=== PATIENT | female | born 1975 | race Two or more races ===

== ENCOUNTER 2016-05-13 11:38 | Emergency (ER) | payer OTHER, SELFPAY ==
[2016-05-13 12:06] VITALS: BMI 32.5
[2016-05-13 12:16] LABS: AUTOMATED BASOPHIL 0.4 % (0-2); AUTOMATED EOSINOPHIL 0.9 % (0-5); AUTOMATED LYMPH 32.3 % (17-44); AUTOMATED MONOCYTE 6.8 % (3-10); AUTOMATED NEUTROPHIL 59.6 % (45-76); MPV 8.6 fL (7.4-10.4)
[2016-05-13 12:31] LABS: BLOOD UREA NITROGEN 9 MG/DL (7-17); CALCIUM 8.8 MG/DL (8.4-10.2); CALCULATED OSMOLALITY 266 MOs/Kg (270-290); CHLORIDE 105 mEq/L (98-107); GLUCOSE 109 mg/dL (70-99); SODIUM LEVEL 138 mEq/L (137-146); TOTAL PROTEIN 7.2 G/DL (6.3-8.2)
[2016-05-13] MEDS ORDERED: MORPHINE 4 MG/ML INJECTION IV ONE (13:02)
[2016-05-13] MEDS ORDERED: NS 1,000 ML IV ONE (13:02)
[2016-05-13] MEDS ORDERED: ONDANSETRON HCL 4 MG/2 ML VIAL IV ONE (13:02)
--- NOTE | 2016-05-13 13:09 | EDPRACDOC ---
- General Information Chief Complaint: Female Urogenital Problems Stated Complaint: PAIN LT UPPER ABD & SIDE Time Seen by Provider: 05/13/16 12:54 Information Source: Patient, [employer] Mode Of Arrival: Car Home Medications: Home Medications Famotidine [Pepcid] 20 mg PO DAILY #30 tablet 05/13/16 Hydrocodone/Acetaminophen [Lortab 5-325 mg Tablet] 1 each PO Q4H PRN #15 tablet 05/13/16 Metronidazole [Flagyl] 500 mg PO BID #14 tab 05/13/16 Allergies/Adverse Reactions: Allergies Allergy/AdvReac Type Severity Reaction Status Date / Time No Known Allergies Allergy Verified 05/13/16 12:06 - History of Present Illness Onset: 3 WEEKS HPI: PT HAS HAD ABD PAIN FOR 3 WEEKS. THE PT HAS BEEN TO SEE HER DR 3 TIMES. SHE STILL HAS PAIN. PT SAID HER DR HAS PUT HER ON VARIOUS MEDS, BUT SHE DOES NOT KNOW WHAT THEY WERE. PT ALSO REPORTS IRREGULAR VAGINAL BLEEDING. Pain Location: Reports: Epigastric, LUQ Pain Context: Reports: Spontaneous Pain Severity: Moderate Pain Quality: Reports: Sharp Pain Radiation: Reports: Back Last Menstrual Period: CURRENT : No Adult Abdominal History: Reports: Abdominal Surgery Female Abdominal History: Reports: Abdominal Surgery Female Associated Signs & Symptoms: Reports: Nausea Oral Intake: Normal Urinary Output: Normal ED Past Medical History - Patient Medical History Neurological History: Denies: Migraine Cardiac History: Reports: Hypercholesterolemia GI/ History: Reports: Gastroesophageal Reflux Psychological History: Denies: Depression, Substance Use Disorder Surgical History: Reports: Appendectomy, Other (C section.). Denies: Hysterectomy - Family Medical History Reports: Hypertension (Mother), Cardiac Disorders (Father). Denies: Diabetes, Cancer, Stroke - Social Medical History Smoking Status: Never smoker Social History: Denies: Substance Use Disorder ETOH: None Substance Abuse: None Lives In: Home EDM Review of Systems - Review of Systems ROS Negative Except as Marked: Yes All systems reviewed and were negative except as marked Gastrointestinal: Pain Genitourinary: Vaginal Bleeding - Physical Exam Constitutional: Alert (Awake), No apparent distress Oriented to: Time, Person, Place Last recorded Vital Signs: Last Vital Signs Temp 97.6 F 05/13/16 11:38 Pulse 96 05/13/16 11:38 Resp 18 05/13/16 11:38 BP 157/90 05/13/16 11:38 Pulse Ox 98 05/13/16 11:38 Oxygen Pulse Oxygen Saturation 98 O2 Device Oxygen Flow Rate Fraction of Inspired Oxygen ( FIO2) - HEENT Head: Normal ( normocephalic) Eye Exam: Normal (PERRL, EOMI, Sclera white) Oropharynx: Normal (Pharynx:Moist without exudate,Gums-no swelling) ENT EAC: Normal TMJ: Normal Nose: No Symptoms Reported (septum midline) Neck: Normal (FROM, trachea at midline) - Respiratory/Cardiovascular Respiratory: Normal - CTA (BBS clear to auscultation without adventitious sounds ) Cardiovascular: Normal (RRR without murmur, gallop or rub) - GI Auscultation: Normal (NABS) Palpation: Normal (Soft,No rebound or guarding, non distended) Tenderness: Mild, RUQ, Epigastric Johnson's Sign: Negative - Bladder: Normal External: Normal Vagina: Blood Cervix: Blood Uterus: Normal size Adnexa: Bilateral: Normal - Musculoskeletal Back: Normal (Non-Tender) Extremities: Normal (Normal tone, Pulses 2+ No cyanosis or edema, FROM) - Integumentary Skin: Normal, Warm, Dry Lymphatics: Normal (no adenopathy) - Neurologic Memory Impaired: Normal Motor Function: Normal (Normal tone, Pulses 2+ No cyanosis or edema, FROM) Cranial Nerve: Normal (CN II-X11 intact sensation, strength 5/5) Cerebellar: Normal Mood Description: Normal Thought: Coherent Perception: Normal - Results 05/13/16 12:10 05/13/16 12:10 WBC 9.3 xk/uL (3.8-10.8) 05/13/16 12:10 RBC 4.50 xM/uL (4.20-5.40) 05/13/16 12:10 Hgb 13.3 g/dL (12.0-16.0) 05/13/16 12:10 Hct 39.0 % (36-47) 05/13/16 12:10 MCV 87 fL (81-99) 05/13/16 12:10 MCH 29.5 pg (27-32) 05/13/16 12:10 MCHC 34.0 g/dl (33-36) 05/13/16 12:10 RDW 14.6 % (11.5-14.5) H 05/13/16 12:10 Plt Count 254 xk/uL (130-400) 05/13/16 12:10 MPV 8.6 fL (7.4-10.4) 05/13/16 12:10 Neut % (Auto) 59.6 % (45-76) 05/13/16 12:10 Lymph % (Auto) 32.3 % (17-44) 05/13/16 12:10 Logan % (Auto) 6.8 % (3-10) 05/13/16 12:10 Eos % (Auto) 0.9 % (0-5) 05/13/16 12:10 Baso % (Auto) 0.4 % (0-2) 05/13/16 12:10 Absolute Neuts (auto) 5.49 xk/uL (1.7-8.2) 05/13/16 12:10 Absolute Lymphs (auto) 2.98 xk/uL (0.65-4.75) 05/13/16 12:10 Sodium 138 mEq/L (137-146) 05/13/16 12:10 Potassium 3.7 mEq/L (3.5-5.1) 05/13/16 12:10 Chloride 105 mEq/L (98-107) 05/13/16 12:10 Carbon Dioxide 26 mMOL/L (22-33) 05/13/16 12:10 Anion Gap 11 mEq/L (8-16) 05/13/16 12:10 BUN 9 MG/DL (7-17) 05/13/16 12:10 Creatinine 0.60 MG/DL (0.52-1.04) 05/13/16 12:10 Estimated GFR (MDRD) > 60 mL/min (>=60) 05/13/16 12:10 Glucose 109 mg/dL (70-99) H 05/13/16 12:10 Calculated Osmolality 266 MOs/Kg (270-290) L 05/13/16 12:10 Calcium 8.8 MG/DL (8.4-10.2) 05/13/16 12:10 Total Bilirubin 0.3 MG/DL (0.2-1.3) 05/13/16 12:10 AST 24 IU/L (14-36) 05/13/16 12:10 ALT 28 IU/L (9-52) 05/13/16 12:10 Alkaline Phosphatase 78 IU/L (38-126) 05/13/16 12:10 Total Protein 7.2 G/DL (6.3-8.2) 05/13/16 12:10 Albumin 4.1 G/DL (3.5-5.0) 05/13/16 12:10 Lipase 54 U/L (23-300) 05/13/16 12:10 Urine Color Pale yellow 05/13/16 13:08 Urine Clarity Clear 05/13/16 13:08 Urine pH 6.0 (5.0-8.0) 05/13/16 13:08 Ur Specific Jackson 1.005 (1.003-1.035) 05/13/16 13:08 Urine Protein Neg (NEG/TRACE) 05/13/16 13:08 Urine Glucose (UA) Neg (NEGATIVE) 05/13/16 13:08 Urine Ketones Neg (NEGATIVE) 05/13/16 13:08 Urine Occult Blood 2+ (NEG/TRACE) H 05/13/16 13:08 Urine Nitrite Neg (NEGATIVE) 05/13/16 13:08 Urine Bilirubin Neg (NEGATIVE) 05/13/16 13:08 Urine Urobilinogen <2.0 MG/DL (0-1) 05/13/16 13:08 Ur Leukocyte Esterase Neg (NEGATIVE) 05/13/16 13:08 Urine RBC 0-2 (0-5) 05/13/16 13:08 Urine WBC 0-2 (0-5) 05/13/16 13:08 Ur Epithelial Cells 1+ 05/13/16 13:08 Urine Bacteria Few (NEG/FEW) 05/13/16 13:08 Urine Test Neg (NEGATIVE) 05/13/16 13:08 Microbiology 05/13/16 13:52 Trichomonas Wet Mount - Final Vaginal 05/13/16 13:52 GREG Preparation - Final Vaginal Lab Results 05/13/16 05/13/16 05/13/16 13:08 13:08 12:10 WBC 9.3 RBC 4.50 Hgb 13.3 Hct 39.0 MCV 87 MCH 29.5 MCHC 34.0 RDW 14.6 H Plt Count 254 MPV 8.6 Neut % (Auto) 59.6 Lymph % (Auto) 32.3 Logan % (Auto) 6.8 Eos % (Auto) 0.9 Baso % (Auto) 0.4 Absolute Neuts (auto) 5.49 Absolute Lymphs (auto) 2.98 Sodium Potassium Chloride Carbon Dioxide Anion Gap BUN Creatinine Estimated GFR (MDRD) Glucose Calculated Osmolality Calcium Total Bilirubin AST ALT Alkaline Phosphatase Total Protein Albumin Lipase Urine Color Pale yellow Urine Clarity Clear Urine pH 6.0 Ur Specific Jackson 1.005 Urine Protein Neg Urine Glucose (UA) Neg Urine Ketones Neg Urine Occult Blood 2+ H Urine Nitrite Neg Urine Bilirubin Neg Urine Urobilinogen <2.0 Ur Leukocyte Esterase Neg Urine RBC 0-2 Urine WBC 0-2 Ur Epithelial Cells 1+ Urine Bacteria Few Urine Test Neg 05/13/16 12:10 WBC RBC Hgb Hct MCV MCH MCHC RDW Plt Count MPV Neut % (Auto) Lymph % (Auto) Logan % (Auto) Eos % (Auto) Baso % (Auto) Absolute Neuts (auto) Absolute Lymphs (auto) Sodium 138 Potassium 3.7 Chloride 105 Carbon Dioxide 26 Anion Gap 11 BUN 9 Creatinine 0.60 Estimated GFR (MDRD) > 60 Glucose 109 H Calculated Osmolality 266 L Calcium 8.8 Total Bilirubin 0.3 AST 24 ALT 28 Alkaline Phosphatase 78 Total Protein 7.2 Albumin 4.1 Lipase 54 Urine Color Urine Clarity Urine pH Ur Specific Jackson Urine Protein Urine Glucose (UA) Urine Ketones Urine Occult Blood Urine Nitrite Urine Bilirubin Urine Urobilinogen Ur Leukocyte Esterase Urine RBC Urine WBC Ur Epithelial Cells Urine Bacteria Urine Test - Diagnostic Imaging Abdomen Image interpreted by: Radiologist 05/13/16 14:26 1 mm nonobstructing stone left lower pole. No ureteral calculus identified. Decision Time to Discharge: 14:26 - Departure Yes I personally saw and evaluated the patient. Disposition: Home Condition: Fair Final Diagnosis: Bacterial vaginosis, DUB (dysfunctional uterine bleeding), Abdominal pain Instructions: Abdominal Pain in Women, Bacterial Vaginosis (ED) Education/Counseling Given To: Patient Education/Counseling Given Regarding: Diagnosis, Treatment Referrals: Doron De La Cruz MD [Primary Care Provider] - One Week Darshan Bishop MD [Staff Provider No Admit] - One Week Lashon Ellison DO [Staff Physician] - One Week Prescriptions: New Famotidine [Pepcid] 20 mg PO DAILY #30 tablet Hydrocodone/Acetaminophen [Lortab 5-325 mg Tablet] 1 each PO Q4H PRN #15 tablet PRN Reason: Pain Metronidazole [Flagyl] 500 mg PO BID #14 tab
[2016-05-13 13:35] LABS: LEUKOCYTES/URINE NEG (NEGATIVE); NITRITE/URINE NEG (NEGATIVE); RBC/URINE 0-2 (0-5); URINE OCCULT BLOOD 2+ (NEG/TRACE); WBC/URINE 0-2 (0-5)
--- NOTE | 2016-05-13 14:23 | DIRPT ---
CLINICAL DATA: Left flank pain EXAM: CT ABDOMEN AND PELVIS WITHOUT CONTRAST TECHNIQUE: Multidetector CT imaging of the abdomen and pelvis was performed following the standard protocol without IV contrast. COMPARISON: CT abdomen pelvis 05/11/2012 FINDINGS: Lower chest: Lung bases clear without infiltrate or effusion. Hepatobiliary: Liver normal in size and contour. No liver lesion. Gallbladder and bile ducts normal. Pancreas: Negative Spleen: Negative Adrenals/Urinary Tract: 1 mm nonobstructing stone left lower pole. Negative for renal obstruction. No renal mass. No ureteral stone. Bladder appears normal. Stomach/Bowel: Negative for bowel obstruction. No bowel edema. Normal appendix. Moderate stool throughout the colon. Vascular/Lymphatic: Normal aorta and iliacs without atherosclerotic disease. No aneurysm. No lymphadenopathy. Reproductive: Normal uterus. No pelvic mass. Other: No free fluid. Musculoskeletal: Mild disc degeneration and spurring L5-S1. No acute bony abnormality. IMPRESSION: 1 mm nonobstructing stone left lower pole. No ureteral calculus identified. Electronically Signed By: Moo Sagastume M.D. On: 05/13/2016 14:20
[2016-05-13 14:53] VITALS: BP 100/60; PULSE 65; TEMP 97.9
[2016-05-15 05:42] LABS: CHLAMY BY NUCLEIC ACID AMP Negative (Negative)
[2016-05-15 06:48] LABS: GC BY NUCLEIC ACID AMP Negative (Negative)
== END 2016-05-13 17:08 | disposition home or self-care (01) ==
LOC: ED 11:38
DX: N76.0 Acute vaginitis (principal); N93.8 Other specified abnormal uterine and vaginal bleeding
CPT/HCPCS: 36415; 74176; 80053; 81001; 81025; 83690; 85025; 87210; 87220; 87491; 87591; 96361; 96374; 96375; 99283; J2270; J2405